=== PATIENT | female | born 1980 | race Caucasian/White ===

== ENCOUNTER 2019-01-08 14:12 | Emergency (ER) | payer OTHER ==
[~2019-01-08] VITALS: Ht 160 cm; Wt 67.1 kg
--- NOTE | 2019-01-08 14:38 | PHYS DOC ---
Past History Past Medical History: No Pertinent History Past Surgical History: Appendectomy Alcohol Use: None Drug Use: None Adult General Chief Complaint Chief Complaint: HEADACHE HPI HPI 38-year-old female presenting to the emergency department today with a headache for 2 weeks. She describes it as a sharp shooting pain that radiates into the temporal mandibular joint. No alleviating or exacerbating factors. She is been taking Tylenol and ibuprofen [id number] with moderate relief. She denies neck stiffness fevers or chills but does describe generalized malaise and fatigue. She denies being . She otherwise is healthy. Review of systems is negative for numbness weakness tingling slurred speech vision changes or difficulty with ambulation. All other review of systems is negative unless otherwise noted in history of present illness. ED course: 30-year-old female presenting the emergency department today with a headache. On arrival she is afebrile with a normal heart rate. On exam, she has a normal neurologic exam and otherwise is unremarkable. IV fluids and headache medication given here in the emergency department. Head CT and blood work obtained. Workup is unremarkable. On reexamination her headache is resolved. We' ll discharge patient home to follow-up with her primary care physician. If her headache continues she will likely need an MRI and possible neurology consultation.The patient has been examined and was not found to have an emergency medical condition. The patient was then discharged home in stable condition to follow up with their primary care physician over the next 1-2 days. They were to return if their symptoms worsened or if they were concerned for any reason. They were also instructed to return to the emergency department if they were unable to get the recommended and appropriate follow- up. [id number] discharge instructions and return precautions were given. Patient's questions were answered to their satisfaction. Patient is comfortable with plan. Review of Systems Review of Systems SEE ABOVE. Allergies Allergies Allergies Coded Allergies Type Severity Reaction Last Updated Verified No Known Drug Allergies 01/08/19 No Physical Exam Physical Exam SEE ABOVE Constitutional: Well developed, well nourished, no acute distress, non-toxic appearance. HENT: Normocephalic, atraumatic, bilateral external ears normal, oropharynx moist, no oral exudates, nose normal. [] Eyes: PERRLA, EOMI, conjunctiva normal, no discharge. Neck: Normal range of motion, no tenderness, supple, no stridor. [] Cardiovascular:Heart rate regular rhythm, no murmur Lungs & Thorax: Bilateral breath sounds clear to auscultation Abdomen: Bowel sounds normal, soft, no tenderness, no masses, no pulsatile masses. [] Skin: Warm, dry, no erythema, no rash. [] Back: No tenderness, no CVA tenderness. [] Extremities: No tenderness, no cyanosis, no clubbing, ROM intact, no edema. [] Neurologic: Mental status: Awake oriented and alert x3 Cranial nerves: Extraocular movements intact, eyebrows marimar bilaterally, smile symmetric, uvula elevation nl, shoulder shrug intact bilaterally, tongue protrusion normal DTRs: 2+ Sensation: equal and normal in all extremities Strength: 5/5 in upper and lower extremities bilaterally Psychologic: Affect normal, judgement normal, mood normal. [] Current Patient Data Vital Signs Vital Signs Date Time Temp Pulse Resp B/P (MAP) Pulse Ox O2 Delivery O2 Flow Rate FiO2 01/08/19 14:15 98.2 81 18 99 Room Air EKG EKG [] Radiology/Procedures Radiology/Procedures [] Course & Med Decision Making Course & Med Decision Making Pertinent Labs and Imaging studies reviewed. (See chart for details) [] Dragon Disclaimer Dragon Disclaimer This electronic medical record was generated, in whole or in part, using a voice recognition dictation system. Departure Departure: Impression: Primary Impression: Complicated headache syndromes Disposition: 01 HOME, SELF-CARE Condition: STABLE Referrals: PCP,NO (PCP) Patient Instructions: General Headache Without Cause Additional Instructions: Thank you for allowing us to participate in your care today. Return to the emergency department you have any new or worsening symptoms, or if you are concerned for any reason. Return to emergency department if you have any new or concerning symptoms including but not limited to fever, chills, nausea, vomiting, intractable pain, any new rashes, chest pain, shortness of air , uncontrolled bleeding, difficulty breathing, and/or vision loss. Follow up with your primary care physician within 1-2 days. Call your Primary Doctor tomorrow and inform them of your visit today. If you do not have a primary care provider we are happy to provide you with a list of our primary care providers contact information. This condition should be evaluated by your primary care physician and any recommended consulting services for continued management within 2 days after discharge. If at any time, you are having difficulty getting into your primary care doctor or a specialist, return to the emergency department. Scripts Sumatriptan Succinate (SUMATRIPTAN SUCCINATE) 25 Mg Tablet 25 MG PO PRN 1X PRN for HEADACHE for 5 Days, #6 TAB 0 Refills Prov: HARLEY GRUBER MD 01/08/19 Metoclopramide Hcl (REGLAN) 10 Mg Tablet 1 TAB PO PRN BID PRN for HEADACHE, #6 TAB 0 Refills Prov: HARLEY GRUBER MD 01/08/19 HARLEY GRUBER MD Jan 08, 2019 14:38
[2019-01-08] MEDS ORDERED: METOCLOPRAMIDE HCL 10 MG/2 ML VIAL. IV ONE (14:45)
[2019-01-08] MEDS ORDERED: diphenhydrAMINE 50 MG/ML VIAL IVP ONE (14:45)
--- NOTE | 2019-01-08 14:48 | RAD ---
[employer] Compliance statement: One or more of the following individualized dose reduction techniques were utilized for this examination: 1. Automated exposure control. 2. Adjustment of the mA and/or kV according to patient size. 3. Use of iterative reconstruction technique. Indication:Headache TIMES 2 WEEKS, WORSE FOR 4 DAYS, DIZZY, CONFUSION TECHNIQUE: CT head without IV contrast COMPARISON: None FINDINGS: No pathologic extra-axial or intra-axial fluid collection. The ventricles and basal cisterns are within normal limits. No acute intracranial bleed. No focal loss of mercado-white differentiation. The visualized orbits within normal limits. No suspicious calvarial lesion. Visualized paranasal sinuses and mastoid air cells are clear. IMPRESSION: No acute intracranial process. Electronically signed by: Tolu Treadwell DO (01/08/2019 2:45 PM) [id number]
[2019-01-08 14:59] LABS: BASO % 1 % (0-3); EOS # 0.1 x10^3/uL (0.0-0.7); EOS % 2 % (0-3); LYMPH # 1.6 x10^3/uL (1.0-4.8); LYMPH % 21 % (24-48); MEAN CORPUSCULAR HEMOGLOBIN 31 pg (25-35); MEAN CORPUSCULAR HGB CONC 33 g/dL (31-37); MEAN CORPUSCULAR VOLUME 94 fL (79-100); MONO # 0.7 x10^3/uL (0.0-1.1); MONO % 9 % (0-9); NEUT # 5.1 x10^3uL (1.8-7.7); NEUT % 68 % (31-73); PLATELET COUNT 301 x10^3/uL (140-400); RED BLOOD COUNT 4.15 x10^6/uL (3.50-5.40); RED CELL DISTRIBUTION WIDTH 13.6 % (11.5-14.5); WHITE BLOOD COUNT 7.5 x10^3/uL (4.0-11.0)
[2019-01-08 15:13] LABS: ALBUMIN 3.5 g/dL (3.4-5.0); ALBUMIN/GLOBULIN RATIO 0.9 (1.0-1.7); CALCIUM 8.6 mg/dL (8.5-10.1); CREATININE 0.7 mg/dL (0.6-1.0); GFR 93.6; POTASSIUM 3.6 mmol/L (3.5-5.1); TOTAL BILIRUBIN 0.3 mg/dL (0.2-1.0); TOTAL PROTEIN 7.2 g/dL (6.4-8.2)
[2019-01-08 15:42] LABS: BILIRUBIN,URINE NEG (NEG); CLARITY,URINE CLEAR; COLOR,URINE YELLOW; GLUCOSE,URINE NEG (NEG)
[2019-01-08 15:43] LABS: BACTERIA,URINE 0 /HPF (0-FEW); NITRITE,URINE NEG (NEG); RBC,URINE 0 /HPF (0-2); SQUAMOUS EPITHELIAL CELL,UR OCC /LPF; UROBILINOGEN,URINE 0.2 mg/dL (0.2 mg/dL); WBC,URINE OCC /HPF (0-4)
[2019-01-08 15:54] VITALS: BP 100/51
[2019-01-08] MEDS ORDERED: METO10TA81 PO (16:01)
[2019-01-08] MEDS ORDERED: SUMA25TA4 PO (16:01)
== END 2019-01-08 16:07 | disposition home or self-care (01) ==
LOC: ER 14:12
DX: G44.59 Other complicated headache syndrome (principal)
CPT/HCPCS: 36415; 70450; 80053; 81001; 84702; 85025; 96374; 96375; 99284; J1200; J2765